=== PATIENT | female | born 1945 | race Caucasian/White ===

== ENCOUNTER → 2021-12-30 | Outpatient (CLI) | payer OTHER ==
[~2021-12-30] MED LIST: MIRALAX17 GM PO; NAPROXEN 250 M250 MG PO; NORCO 7.5-3251 EACH PO; SYNTHROID100 MCG PO
== END ==
LOC: CT 12-18 10:30
DX: Z01.818 Encounter for other preprocedural examination (principal); C18.2 Malignant neoplasm of ascending colon; K76.9 Liver disease, unspecified
CPT/HCPCS: 36415; 71260; 82565; 84520; Q9967